=== PATIENT | male | born 1990 | race Caucasian/White ===

== ENCOUNTER 2020-06-18 12:58 | Emergency (ER) | payer MEDICAID ==
[~2020-06-18] VITALS: Ht 182.9 cm; Wt 93.3 kg
[2020-06-18] MEDS ORDERED: ALBUTEROL/IPRATROPIUM 2.5MG/0.5MG, 3 ML ONE (13:45)
[2020-06-18] MEDS ORDERED: ALBUTEROL/IPRATROPIUM 2.5MG/0.5MG, 3 ML NPPB ONE (14:00)
--- NOTE | 2020-06-18 14:31 | NUR ---
BREAK RN: PT REPORTS IMPROVEMENT AFTER BREATHING TX. ALL TESTS RESULTED. PT IS UP FOR RECHECK AT THIS TIME. PT TACHYCARDIC, OTHER VS WDL.
[2020-06-18 15:22] VITALS: BP 121/82
== END 2020-06-18 15:25 | disposition home or self-care (01) ==
LOC: ED 13:30
DX: J45.41 Moderate persistent asthma with (acute) exacerbation (principal); R00.0 Tachycardia, unspecified
CPT/HCPCS: 71045; 93005; 94640; 99283; J7512

== ENCOUNTER 2020-06-19 22:53 | Inpatient (IN) | payer MEDICAID ==
[~2020-06-19] VITALS: Ht 182.9 cm; Wt 93.6 kg
[2020-06-19] MEDS ORDERED: MAGNESIUM SULFATE PMX 2GM/50ML 50 ML ONE (23:14)
[2020-06-19] MEDS ORDERED: LORazepam 2 MG/ML, 1ML ONE (23:15)
[2020-06-19] MEDS ORDERED: LORazepam 2 MG/ML, 1ML IVPush ONE (23:30)
[2020-06-19] MEDS ORDERED: MAGNESIUM SULFATE PMX 2GM/50ML 50 ML IV ONE (23:30)
--- NOTE | 2020-06-19 23:35 | NUR ---
PT STATES FEELING BETTER ALREADY. WILL CTM. VSS.
[2020-06-20] MEDS ORDERED: ALBUTEROL SULFATE 2.5MG/0.5ML NPPB ONE (00:30)
[2020-06-20] MEDS ORDERED: ALBUTEROL/IPRATROPIUM 2.5MG/0.5MG, 3 ML ONE (00:30)
[2020-06-20] MEDS ORDERED: methylPREDNISolone SOD SUCC 125 MG/2 ML IVPush SCH (01:00)
[2020-06-20 01:19] LABS: ANION GAP 8 mmol/L (5-15); CALCIUM 9.8 mg/dL (8.5-10.1); CHLORIDE 105 mmol/L (98-107); CREATININE 1.47 mg/dL (0.7-1.3); MEAN CORPUSCULAR HEMOGLOBIN 28.8 pg (27.5-34.5); MEAN CORPUSCULAR HGB CONC 33.1 g/dL (33.2-36.2); MEAN PLATELET VOLUME 10.2 fL (7.4-10.4); PLATELET COUNT 267 x10^3/uL (130-400); RED BLOOD COUNT 5.87 x10^6/uL (4.38-5.82); RED CELL DISTRIBUTION WIDTH 13.3 % (9.4-14.8)
[2020-06-20] MEDS ORDERED: GUAIFENESIN/DM 200-20MG, 10ML UDC PO PRN (01:30)
[2020-06-20] MEDS ORDERED: ACETAMINOPHEN 325 MG TABLET PO PRN (01:30)
[2020-06-20] MEDS ORDERED: DOCUSATE 100 MG CAPSULE PO PRN (01:30)
[2020-06-20] MEDS ORDERED: SODIUM CHLORIDE 0.9% 1,000ML IVBOLUS ONE (01:30)
[2020-06-20] MEDS ORDERED: methylPREDNISolone SOD SUCC 125 MG/2 ML ONE (01:41)
[2020-06-20 02:04] LABS: MD YES
[2020-06-20 02:05] LABS: <PLATELET ESTIMATE> ADEQUATE; <PLT MORPHOLOGY> NORMAL PLT MORPH; ANISOCYTOSIS 1+; EOS#(MANUAL) 0.22 x10^3/uL (0.0-0.4); EOS% (MANUAL) 1 % (1-7); LYMPH#(MANUAL) 2.18 x10^3/uL (1-3.4); LYMPHS% (MANUAL) 10 % (22-44); MONOS#(MANUAL) 3.05 x10^3/uL (0.3-2.7); MONOS% (MANUAL) 14 % (2-9); SEG#(MANUAL) 16.35 x10^3/uL (1.8-6.8); SEGS% (MANUAL) 75 % (42-75)
[2020-06-20 02:08] LABS: POLYCHROMASIA 1+
[2020-06-20 02:21] VITALS: BP 136/85
[2020-06-20] MEDS: HEPARIN 5,000 UNITS/ML, 1ML SQ SCH ×2 (02:35→11:05)
[2020-06-20] MEDS: methylPREDNISolone SOD SUCC 40 MG/ML IVPush SCH ×3 (02:42→16:54)
[2020-06-20 02:55] VITALS: BP 135/78
[2020-06-20] MEDS ORDERED: SODIUM CHLORIDE 0.9% 1,000 ML IV SCH ×2 (03:30→08:30)
[2020-06-20 04:18] LABS: BASOPHILS % (AUTO) 0 % (0-1); EOSINOPHILS % (AUTO) 0 % (1-7); LYMPHOCYTES % (AUTO) 3 % (22-44); MEAN CORPUSCULAR HEMOGLOBIN 29.1 pg (27.5-34.5); MEAN CORPUSCULAR HGB CONC 33.5 g/dL (33.2-36.2); MEAN PLATELET VOLUME 10.3 fL (7.4-10.4); MONOCYTES % (AUTO) 5 % (2-9); NEUTROPHILS % (AUTO) 92 % (42-75); PLATELET COUNT 254 x10^3/uL (130-400); RED BLOOD COUNT 5.39 x10^6/uL (4.38-5.82); RED CELL DISTRIBUTION WIDTH 13.4 % (9.4-14.8)
[2020-06-20 04:27] LABS: ANION GAP 7 mmol/L (5-15); CALCIUM 9.1 mg/dL (8.5-10.1); CHLORIDE 107 mmol/L (98-107)
[2020-06-20 05:49] LABS: MD SCAN
[2020-06-20 07:37] VITALS: BP 141/87
[2020-06-20] MEDS: ALBUTEROL-IPRATROPIUM MDI INH INH SCH ×3 (08:40→15:45)
[2020-06-20 09:23] LABS: CHLORIDE,URINE RANDOM 67 mmol/L; POTASSIUM,URINE RANDOM 51 mmol/L; SODIUM,URINE RANDOM 71 mmol/L
[2020-06-20 12:45] VITALS: BP 142/81
[2020-06-20 15:24] LABS: ANION GAP 6 mmol/L (5-15); CALCIUM 9.5 mg/dL (8.5-10.1); CHLORIDE 108 mmol/L (98-107); CREATININE 1.14 mg/dL (0.7-1.3)
[2020-06-20] MEDS ORDERED: PRED10TA14 PO (16:57)
[2020-06-20] MEDS ORDERED: BUDE180A INH (16:57)
== END 2020-06-20 18:09 | disposition left against medical advice (07) | DRG 189 ==
LOC: ED 06-20 01:09 → EDIP 06-20 01:11 → 4WST 06-20 02:14
PROVIDERS: ADMIT Family Medicine; ATTEND Family Medicine
DX: J96.01 Acute respiratory failure with hypoxia (principal); N17.0 Acute kidney failure with tubular necrosis; J45.42 Moderate persistent asthma with status asthmaticus; D72.829 Elevated white blood cell count, unspecified; F41.9 Anxiety disorder, unspecified; E86.0 Dehydration
CPT/HCPCS: 36415; 80048; 82436; 84133; 84300; 85025; 93005; 94640; G0378; J1644; J2060; J2920; J2930; J3475; J7030